=== PATIENT | female | born 1980 | race African-American/Black ===

== ENCOUNTER 2016-10-23 11:54 | Emergency (ER) | payer MEDICAID ==
[~2016-10-23] VITALS: Ht 165.1 cm; Wt 94.3 kg
[2016-10-23] MEDS ORDERED: IBUPROFEN 600 MG TABLET PO ONE (12:29)
[2016-10-23] MEDS: IBUPROFEN 600 MG TABLET PO ONE (13:10)
--- NOTE | 2016-10-23 13:11 | NUR ---
PATIENT BIB SELF, CC: HEADACHE X 1 DAY, PATIENT IS VERBALLY RESPONSIVE, NIHSS SCORE IS NEGATIVE, PATIENT IS ABLE TO AMBULATE TO BED, MD AT BEDSIDE, WILL CONTINUE TO MONITOR CLOSELY.
[2016-10-23 13:12] VITALS: BP 156/98
--- NOTE | 2016-10-23 13:12 | NUR ---
Patient discharged to home in stable condition. Written and verbal after care instructions given. Patient verbalizes understanding of instruction. NAD NOTED UPON DISCHARGE, WILL FOLLOW UP WITH PMD.
== END 2016-10-23 13:13 | disposition home or self-care (01) ==
LOC: ER 11:57
DX: R51 Headache (principal); D64.9 Anemia, unspecified; F41.9 Anxiety disorder, unspecified; I10 Essential (primary) hypertension; Z88.2 Allergy status to sulfonamides
CPT/HCPCS: 99282; A4606; Z7610